=== PATIENT | female | born 1935 | race Caucasian/White ===

== ENCOUNTER 2019-09-01 22:43 | Emergency (ER) | payer SELFPAY ==
[~2019-09-01] VITALS: Ht 154.9 cm; Wt 90.7 kg
[2019-09-01 22:54] VITALS: BP 91/51
--- NOTE | 2019-09-01 23:12 | NUR ---
PT TAKEN TO BED 10
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
--- NOTE | 2019-09-01 23:35 | NUR ---
FAMILY AT BEDSIDE
--- NOTE | 2019-09-01 23:40 | NUR ---
DAUGHTER CONTACT INFO: MARY,
[2019-09-01] MEDS ORDERED: NACL 0.9% 1,000 ML IV ONE (23:50)
--- NOTE | 2019-09-01 23:59 | NUR ---
BLOOD WORK COLLECTED AND TAKEN TO LAB.
[2019-09-02 00:06] LABS: BASOPHILS # (AUTO) 0.1 K/uL (0.00-0.22); BASOPHILS % (AUTO) 0.7 % (0.0-2.0); EOSINOPHILS % (AUTO) 0.1 % (0.0-4.0); HEMATOCRIT 35.3 % (36-48); HEMOGLOBIN 11.5 g/dL (12.0-16.0); LYMPHOCYTES # (AUTO) 0.8 K/uL (2.5-16.5); MEAN CORPUSCULAR HEMOGLOBIN 27 pg (27-31); MEAN CORPUSCULAR HGB CONC 33 g/dL (33-37); MEAN CORPUSCULAR VOLUME 83.9 fL (80-94); MONOCYTES # (AUTO) 1.3 K/uL (0.8-1.0); NEUTROPHILS # (AUTO) 6.2 K/uL (1.8-7.7); PLATELET COUNT (AUTO) 153 K/uL (140-450); RED BLOOD CELL COUNT(AUTO) 4.21 MIL/uL (4.20-5.40); RED CELL DISTRIBUTION WIDTH 16.6 % (11.6-13.7); WHITE BLOOD COUNT (AUTO) 8.4 K/uL (4.8-10.8)
[2019-09-02 00:21] LABS: ALBUMIN 2.9 g/dL (3.4-5.0); ANION GAP 13.1 (8-16); ASPARTATE AMINOTRANSFERASE 20 U/L (15-37); CARBON DIOXIDE 27.2 mmol/L (21-32); CHLORIDE 94 mmol/L (98-107); GLUCOSE 140 mg/dL (74-106); LACTATE DEHYDROGENASE 155 U/L (81-234); POTASSIUM 4.3 mmol/L (3.5-5.1); SODIUM SERUM 130 mmol/L (136-145); TOTAL BILIRUBIN 0.9 mg/dL (0.0-1.0); UREA NITROGEN, BLOOD 21 mg/dL (7-18)
--- NOTE | 2019-09-02 00:23 | NUR ---
CONTACTED DAUGHTER SHANTELL 3X BUT NO RESPONSE.
--- NOTE | 2019-09-02 00:33 | NUR ---
RT AT BEDSIDE FOR ABGS.
[2019-09-02 00:44] LABS: LYMPHOCYTES % (AUTO) 9.4 % (20.5-51.1); MONOCYTES % (AUTO) 15.8 % (1.7-9.3)
[2019-09-02 00:48] LABS: C-REACTIVE PROTEIN QUANT 18.1 mg/dL (0.0-0.9)
[2019-09-02 00:51] LABS: PROTHROMBIN TIME 10.9 secs (10.8-13.4)
[2019-09-02 01:36] LABS: APPEARANCE,URINE CLOUDY (CLEAR); BILIRUBIN,URINE NEGATIVE (NEGATIVE); BLOOD, URINE NEGATIVE (NEGATIVE); COLOR,URINE ORANGE (YELLOW); LEUKOCYTE ESTERASE ,URINE NEGATIVE (NEGATIVE); NITRITE, URINE NEGATIVE (NEGATIVE); UGLUCOSE NEGATIVE (NEGATIVE)
--- NOTE | 2019-09-02 01:39 | NUR ---
PT TAKEN TO CT
--- NOTE | 2019-09-02 02:01 | NUR ---
PT RETURNED FROM CT VIA GURNEY. PT RECONNECTED TO [employer], PULSE OX, BP CUFF. PT RESTING IN BED AT LOWEST POSITION, HOB ELEVATED, SIDE RAIL X 2 FOR PT SAFETY.
--- NOTE | 2019-09-02 02:05 | NUR ---
PT 02 SAT 92% , PT REPOSITIONED TO SITTING UPRIGHT IN BED , 02 SAT NOW 96%. BED IN LOWEST POSITION, SIDE RAIL X2 FOR PT SAFETY.
--- NOTE | 2019-09-02 03:16 | NUR ---
CONTACTED DAUGHTER FOR AN UPDATE ON PT STATUS, DAUGHTER DIDNT CARDIOVASCULAR TECH AND UNABLE TO LEAVE A MESSAGE D/T VOICEBOX NOT BEING SET UP.
--- NOTE | 2019-09-02 03:27 | NUR ---
PT 02 SAT 90% ON 2 L NC, PT REPOSITIONED AND PLACED ON 4L NC , CURRENT O2 SATS 97%. DR. JI MADE AWARE.
--- NOTE | 2019-09-02 03:46 | NUR ---
PT RESTING IN BED AT LOWEST POSITION, AROUSABLE TO VERBAL STIMULATION, HOB ELEVATED, SIDE RAIL X2 FOR PT SAFETY.
--- NOTE | 2019-09-02 03:52 | NUR ---
PT REPOSITIONED AND LAYING IN BED AT LOWEST POSITION, HOB ELEVATED, SIDE RAIL X2 FOR PT SAFETY.
--- NOTE | 2019-09-02 04:32 | NUR ---
PT RESTING IN BED AT LOWEST POSITION, HOB ELEVATED, SIDE RAIL X2 , PT O2 SAT 97%.
--- NOTE | 2019-09-02 05:16 | NUR ---
pt sleeping in bed , bed locked and in lowest position, hob elevated, side rail x2 for pt safety. Pt O2 sat 98%.
--- NOTE | 2019-09-02 06:09 | NUR ---
pt sleeping in bed , arousable to verbal stimulation, bed locked and in lowest position, HOB elevated, side rail x2.
--- NOTE | 2019-09-02 06:34 | NUR ---
REPORT PROVIDED TO [facility]AYLIE [facility] FOR [facility]SP[facility].
--- NOTE | 2019-09-02 07:05 | NUR ---
[facility] TRANSPORT AT BEDSIDE
--- NOTE | 2019-09-02 07:11 | NUR ---
Patient to be transferred to [facility] [place] . Is being transferred due to HIGHER LEVEL OF CARE . Receiving facility has accepting physician and available space. ER physician has signed transfer form. Patient or responsible republican has agreed to transfer and signed form. Patient belongings inventoried and will be sent with patient. Copy of nursing notes, lab reports, EKG, Physicians Orders and X-rays to be sent with patient. Report called to NELI CAMPOS at receiving facility.
--- NOTE | 2019-09-02 07:13 | NUR ---
PT TRANSFERRED TO [facility] RM [id number]. PT TRANSFERRED IN STABLE CONDITION.
[2019-09-02 07:14] VITALS: BP 92/61
== END 2019-09-02 07:13 | disposition short-term general hospital (02) ==
LOC: EEVIPCON 22:43 → MED 22:43
DX: I71.00 Dissection of unspecified site of aorta (principal); I31.3 Pericardial effusion (noninflammatory); I10 Essential (primary) hypertension
CPT/HCPCS: 36415; 36600; 71045; 71275; 74174; 80053; 81003; 82550; 82728; 82803; 83605; 83615; 83880; 84484; 85025; 85379; 85384; 85610; 85730; 86140; 87040; 87086; 93005; 99291; 99292; J7030; Q0092; Q9967; U0003